=== PATIENT | female | born 1950 | race Caucasian/White ===

== ENCOUNTER 2017-03-09 09:49 | Inpatient (IN) | payer MEDICARE, BC ==
[2017-03-09] MEDS ORDERED: oxyCODONE 5 MG Tab ONE ×2 (14:00→19:30)
[2017-03-09] MEDS ORDERED: Tuberculin, PPD 5 Units/0.1 ML 1 ML MDV IDERM ONE (16:30)
[2017-03-09] MEDS ORDERED: Nitroglycerin 0.4 MG Tab.SL SL PRN (16:57)
[2017-03-09] MEDS ORDERED: Non-Formulary Medication 1 Each (Levothyroxine Sodium [Synthroid] 125 MCG) PO SCH (17:00)
[2017-03-09] MEDS ORDERED: oxyCODONE 5 MG Tab PO PRN (19:40)
[2017-03-09] MEDS: oxyCODONE 5 MG Tab PO PRN (20:30)
[2017-03-09] MEDS: traZODone 50 MG Tab PO PRN (21:15)
[2017-03-09] MEDS: hydrOXYzine HCl 25 MG Tab PO PRN (22:40)
[2017-03-09] MEDS ORDERED: traMADol 50 MG Tab ONE (23:57)
[2017-03-10] MEDS: oxyCODONE 5 MG Tab PO PRN ×3 (04:10→16:21)
[2017-03-10] MEDS ORDERED: Levothyroxine 100 MCG Tab PO SCH (07:00)
[2017-03-10] MEDS ORDERED: Levothyroxine 25 MCG Tab PO SCH (07:00)
[2017-03-10] MEDS ORDERED: Polyethylene Glycol 3350 Powder 510 GM Bot PO PRN (07:39)
[2017-03-10] MEDS ORDERED: Levothyroxine 25 MCG Tab ONE (07:55)
[2017-03-10] MEDS ORDERED: Levothyroxine 100 MCG Tab ONE (07:55)
[2017-03-10] MEDS: Ferrous Gluconate 324 MG Tab PO SCH (07:57)
[2017-03-10] MEDS: Naproxen 250 MG Tab PO SCH ×2 (07:57→20:57)
[2017-03-10] MEDS: Calcium Carbonate/Vitamin D3 1500 MG-400 Units Tab PO SCH (07:57)
[2017-03-10] MEDS: hydrOXYzine HCl 25 MG Tab PO PRN ×4 (07:57→20:57)
[2017-03-10] MEDS: Lisinopril 20 MG Tab PO SCH (07:58)
[2017-03-10] MEDS ORDERED: DIVALPROEX SODIUM 500 MG PO SCH (08:00)
[2017-03-10] MEDS: Aspirin 325 MG Tab.EC PO SCH (08:00)
[2017-03-10] MEDS ORDERED: Naproxen 500 MG Tab PO SCH (08:00)
[2017-03-10] MEDS: Acetaminophen 650 MG Tab.ER PO PRN ×2 (08:00→16:21)
[2017-03-10] MEDS: Bisacodyl 5 MG Tab PO SCH (08:00)
[2017-03-10] MEDS: hydrOXYzine HCl 25 MG Tab PO SCH (10:18)
[2017-03-10] MEDS: traMADol 50 MG Tab PO PRN ×3 (12:32→20:57)
--- NOTE | 2017-03-10 14:53 | HP ---
HISTORY OF PRESENT ILLNESS: This 66-year-old lady is here for rehab purposes. She is being admitted as a swing bed patient. The patient underwent a total right knee replacement on March 06, 2017, and will be here for a while, undergoing both physical and occupational therapy. The patient states that as long as she is on some pain meds, her pain is okay. She has been able to use the bathroom independently with a walker and has been tolerating a regular diet. PAST MEDICAL HISTORY: 1. Breast cancer, status post left mastectomy. 2. Hyperlipidemia. 3. Migraines. 4. Narcolepsy. 5. Sleep apnea. 6. Shortness of breath with exertion. 7. Thyroid disease. 8. History of TIA. CURRENT MEDICATIONS: Please see medication list on [employer]. OBJECTIVE: GENERAL APPEARANCE: Upon entering the room, the patient is lying in bed. She is in no obvious distress. She states her pain is fairly well controlled at this time. VITAL SIGNS: Reveal a blood pressure of 133/66. She is afebrile. HEENT: Oral mucous membranes are moist. Tonsils not enlarged or injected. Pharynx not inflamed. NECK: Supple. LUNGS: Clear. CARDIAC: Heart sounds distinct without murmurs. EXTREMITIES: Examining the patient's right knee area reveals the dressing is intact on the anterior aspect. There is swelling and mild redness on both sides of the dressing. There is a small amount of drainage that has seeped through the dressing to the surface of the dressing that is in place. There is mild tenderness that radiates up the proximal thigh with minimal redness in this area. The patient states that has been this way since she left the surgical center. TREATMENT PLAN: The patient did arrive with orders of minimal assist x1. She will be on a regular diet. She will use a walker for any ambulation, and physical therapy and occupational therapy have already been scheduled to begin next week. Lab work done today. CBC shows a hemoglobin of 11.2, white count is normal. Metabolic panel was unremarkable. CRS/MODL
[2017-03-10] MEDS: traZODone 50 MG Tab PO PRN (20:57)
[2017-03-11] MEDS: Acetaminophen 650 MG Tab.ER PO PRN ×2 (02:20→11:27)
[2017-03-11] MEDS: oxyCODONE 5 MG Tab PO PRN ×5 (02:20→20:12)
[2017-03-11] MEDS: Ferrous Gluconate 324 MG Tab PO SCH (07:43)
[2017-03-11] MEDS: Calcium Carbonate/Vitamin D3 1500 MG-400 Units Tab PO SCH (07:43)
[2017-03-11] MEDS: Naproxen 250 MG Tab PO SCH ×2 (07:43→20:02)
[2017-03-11] MEDS: Aspirin 325 MG Tab.EC PO SCH (07:43)
[2017-03-11] MEDS: Bisacodyl 5 MG Tab PO SCH (07:44)
[2017-03-11] MEDS: Lisinopril 20 MG Tab PO SCH (07:44)
[2017-03-11] MEDS: DIVALPROEX 500 MG PO SCH ×2 (07:44→20:03)
[2017-03-11] MEDS: Levothyroxine 100 MCG Tab PO SCH (08:19)
[2017-03-11] MEDS: Levothyroxine 25 MCG Tab PO SCH (08:19)
[2017-03-11] MEDS: traMADol 50 MG Tab PO PRN (16:08)
[2017-03-11] MEDS: hydrOXYzine HCl 25 MG Tab PO PRN (20:15)
[2017-03-11] MEDS: traZODone 50 MG Tab PO PRN (22:12)
[2017-03-12] MEDS: oxyCODONE 5 MG Tab PO PRN ×4 (00:19→18:02)
[2017-03-12] MEDS: Levothyroxine 25 MCG Tab PO SCH (06:00)
[2017-03-12] MEDS: Levothyroxine 100 MCG Tab PO SCH (06:02)
[2017-03-12] MEDS: hydrOXYzine HCl 25 MG Tab PO PRN ×3 (06:05→18:02)
[2017-03-12] MEDS: Lisinopril 20 MG Tab PO SCH (07:54)
[2017-03-12] MEDS: Naproxen 250 MG Tab PO SCH ×2 (07:54→20:30)
[2017-03-12] MEDS: Ferrous Gluconate 324 MG Tab PO SCH (07:54)
[2017-03-12] MEDS: Bisacodyl 5 MG Tab PO SCH (08:00)
[2017-03-12] MEDS: Aspirin 325 MG Tab.EC PO SCH (08:00)
[2017-03-12] MEDS: Calcium Carbonate/Vitamin D3 1500 MG-400 Units Tab PO SCH (08:00)
[2017-03-12] MEDS: DIVALPROEX 500 MG PO SCH ×2 (08:01→20:30)
[2017-03-12] MEDS: Acetaminophen 650 MG Tab.ER PO PRN ×2 (15:00→21:27)
[2017-03-12] MEDS: traZODone 50 MG Tab PO PRN (21:27)
[2017-03-13] MEDS: oxyCODONE 5 MG Tab PO PRN ×6 (00:34→23:00)
[2017-03-13] MEDS: hydrOXYzine HCl 25 MG Tab PO PRN ×5 (00:37→22:59)
[2017-03-13] MEDS: Acetaminophen 650 MG Tab.ER PO PRN ×2 (03:04→15:09)
[2017-03-13] MEDS: Levothyroxine 25 MCG Tab PO SCH (06:06)
[2017-03-13] MEDS: Levothyroxine 100 MCG Tab PO SCH (06:06)
[2017-03-13] MEDS: Aspirin 325 MG Tab.EC PO SCH (07:36)
[2017-03-13] MEDS: Naproxen 250 MG Tab PO SCH ×2 (07:37→20:33)
[2017-03-13] MEDS: Lisinopril 20 MG Tab PO SCH (07:37)
[2017-03-13] MEDS: Calcium Carbonate/Vitamin D3 1500 MG-400 Units Tab PO SCH (07:37)
[2017-03-13] MEDS: Bisacodyl 5 MG Tab PO SCH (07:37)
[2017-03-13] MEDS: Ferrous Gluconate 324 MG Tab PO SCH (07:37)
[2017-03-13] MEDS: DIVALPROEX 500 MG PO SCH ×2 (07:44→20:33)
[2017-03-13] MEDS ORDERED: hydrOXYzine HCl 25 MG Tab ONE (12:07)
[2017-03-13] MEDS: traZODone 50 MG Tab PO PRN (23:06)
[2017-03-14] MEDS: traMADol 50 MG Tab PO PRN ×3 (03:18→23:05)
[2017-03-14] MEDS: Levothyroxine 25 MCG Tab PO SCH (07:10)
[2017-03-14] MEDS: Levothyroxine 100 MCG Tab PO SCH (07:22)
[2017-03-14] MEDS: oxyCODONE 5 MG Tab PO PRN ×4 (07:26→19:51)
[2017-03-14] MEDS: Ferrous Gluconate 324 MG Tab PO SCH (08:25)
[2017-03-14] MEDS: Lisinopril 20 MG Tab PO SCH (08:26)
[2017-03-14] MEDS: Bisacodyl 5 MG Tab PO SCH (08:26)
[2017-03-14] MEDS: Naproxen 250 MG Tab PO SCH ×2 (08:26→19:51)
[2017-03-14] MEDS: Calcium Carbonate/Vitamin D3 1500 MG-400 Units Tab PO SCH (08:26)
[2017-03-14] MEDS: Aspirin 325 MG Tab.EC PO SCH (08:26)
[2017-03-14] MEDS: DIVALPROEX 500 MG PO SCH (08:29)
[2017-03-14] MEDS: Divalproex Sodium Delayed-Release 500 MG Tab.CR PO SCH ×2 (08:30→19:51)
[2017-03-14] MEDS: Acetaminophen 650 MG Tab.ER PO PRN (15:53)
[2017-03-14] MEDS: hydrOXYzine HCl 25 MG Tab PO PRN ×2 (15:53→23:05)
[2017-03-14] MEDS: traZODone 50 MG Tab PO PRN (23:06)
[2017-03-15] MEDS: oxyCODONE 5 MG Tab PO PRN ×4 (04:20→22:21)
[2017-03-15] MEDS: Acetaminophen 650 MG Tab.ER PO PRN (04:20)
[2017-03-15] MEDS: Aspirin 325 MG Tab.EC PO SCH (08:28)
[2017-03-15] MEDS: Naproxen 250 MG Tab PO SCH ×2 (08:28→20:07)
[2017-03-15] MEDS: Levothyroxine 25 MCG Tab PO SCH (08:28)
[2017-03-15] MEDS: Levothyroxine 100 MCG Tab PO SCH (08:28)
[2017-03-15] MEDS: Bisacodyl 5 MG Tab PO SCH (08:29)
[2017-03-15] MEDS: Ferrous Gluconate 324 MG Tab PO SCH (08:29)
[2017-03-15] MEDS: Calcium Carbonate/Vitamin D3 1500 MG-400 Units Tab PO SCH (08:29)
[2017-03-15] MEDS: Lisinopril 20 MG Tab PO SCH (08:29)
[2017-03-15] MEDS: Divalproex Sodium Delayed-Release 500 MG Tab.CR PO SCH ×2 (08:31→20:07)
[2017-03-15] MEDS: hydrOXYzine HCl 25 MG Tab PO PRN ×2 (12:26→22:21)
[2017-03-15] MEDS: traMADol 50 MG Tab PO PRN (18:35)
[2017-03-16] MEDS: traMADol 50 MG Tab PO PRN ×2 (03:19→18:33)
[2017-03-16] MEDS: Levothyroxine 100 MCG Tab PO SCH (06:11)
[2017-03-16] MEDS: Levothyroxine 25 MCG Tab PO SCH (06:11)
[2017-03-16] MEDS: Naproxen 250 MG Tab PO SCH ×2 (07:44→20:17)
[2017-03-16] MEDS: Ferrous Gluconate 324 MG Tab PO SCH (07:44)
[2017-03-16] MEDS: Divalproex Sodium Delayed-Release 500 MG Tab.CR PO SCH ×2 (07:44→22:35)
[2017-03-16] MEDS: Aspirin 325 MG Tab.EC PO SCH (07:44)
[2017-03-16] MEDS: Calcium Carbonate/Vitamin D3 1500 MG-400 Units Tab PO SCH (07:44)
[2017-03-16] MEDS: Lisinopril 20 MG Tab PO SCH (07:45)
[2017-03-16] MEDS: Bisacodyl 5 MG Tab PO SCH (07:45)
[2017-03-16] MEDS: Acetaminophen 650 MG Tab.ER PO PRN ×2 (08:27→18:32)
[2017-03-16] MEDS: oxyCODONE 5 MG Tab PO PRN ×2 (13:34→22:45)
[2017-03-16] MEDS: hydrOXYzine HCl 25 MG Tab PO PRN ×2 (13:35→22:45)
--- NOTE | 2017-03-16 15:02 | PN ---
DATE OF VISIT: 03/16/2017 HISTORY OF PRESENT ILLNESS: A 66-year-old lady who was admitted to [facility] 1 week ago on March 09 for swing bed purposes involving the rehab. She had recently undergone knee replacement on the right knee and due to not having a good support system at home, it was thought best to be here on swing bed status until she could get rehab to help her get back to 100% with her ADLs. Nursing staff tells me the patient has been doing her ADLs with just supervision, no assistance, she does ambulate with a walker, she has not needed help with anything. The patient's pain has been well controlled with pain medications. Upon entering the room, the patient is awake, she is just finishing her breakfast. She tells me that she is doing well. She had a little dizzy spell after taking a bath a couple of days ago, but that only happened once and she feels fine since. The patient feels she is almost ready to go home. She would like to go home next week. Examining her right knee today reveals the redness is gone, swelling is slowly improving. There is no drainage noted, and the dressing is dry and intact. TREATMENT PLAN: At this point, I feel comfortable with the patient being discharged to go home next week. We are currently talking about Sunday. I will consult with Dr. Sheppard who will hopefully assist with the discharge process since I will not be here next Sunday. NIURKA/NOLBERTO /[id number]
[2017-03-16] MEDS: Calcium Carbonate 500 MG Tab.Chew PO PRN (23:48)
[2017-03-17] MEDS: Levothyroxine 25 MCG Tab PO SCH (06:30)
[2017-03-17] MEDS: Levothyroxine 100 MCG Tab PO SCH (06:31)
[2017-03-17] MEDS: Lisinopril 20 MG Tab PO SCH (07:31)
[2017-03-17] MEDS: Naproxen 250 MG Tab PO SCH ×2 (07:31→19:54)
[2017-03-17] MEDS: Calcium Carbonate/Vitamin D3 1500 MG-400 Units Tab PO SCH (07:31)
[2017-03-17] MEDS: Ferrous Gluconate 324 MG Tab PO SCH (07:31)
[2017-03-17] MEDS: Aspirin 325 MG Tab.EC PO SCH (07:31)
[2017-03-17] MEDS: Bisacodyl 5 MG Tab PO SCH (07:32)
[2017-03-17] MEDS: oxyCODONE 5 MG Tab PO PRN ×5 (07:33→23:50)
[2017-03-17] MEDS: Divalproex Sodium Delayed-Release 500 MG Tab.CR PO SCH ×2 (07:51→19:54)
[2017-03-17] MEDS: hydrOXYzine HCl 25 MG Tab PO PRN ×3 (07:52→23:46)
[2017-03-17] MEDS: Calcium Carbonate 500 MG Tab.Chew PO PRN (20:44)
[2017-03-18] MEDS: Levothyroxine 100 MCG Tab PO SCH (06:06)
[2017-03-18] MEDS: Levothyroxine 25 MCG Tab PO SCH (06:06)
[2017-03-18] MEDS: hydrOXYzine HCl 25 MG Tab PO PRN (06:06)
[2017-03-18] MEDS: oxyCODONE 5 MG Tab PO PRN ×4 (06:07→23:39)
[2017-03-18] MEDS: Lisinopril 20 MG Tab PO SCH (07:41)
[2017-03-18] MEDS: Aspirin 325 MG Tab.EC PO SCH (07:42)
[2017-03-18] MEDS: Divalproex Sodium Delayed-Release 500 MG Tab.CR PO SCH ×2 (07:42→21:40)
[2017-03-18] MEDS: Calcium Carbonate/Vitamin D3 1500 MG-400 Units Tab PO SCH (07:45)
[2017-03-18] MEDS: Ferrous Gluconate 324 MG Tab PO SCH (07:45)
[2017-03-18] MEDS: Naproxen 250 MG Tab PO SCH ×2 (07:46→19:18)
[2017-03-18] MEDS: Bisacodyl 5 MG Tab PO SCH (07:46)
[2017-03-18] MEDS: Calcium Carbonate 500 MG Tab.Chew PO PRN (10:37)
[2017-03-18] MEDS: Acetaminophen 650 MG Tab.ER PO PRN (16:11)
[2017-03-18] MEDS: traMADol 50 MG Tab PO PRN (16:11)
[2017-03-19] MEDS: oxyCODONE 5 MG Tab PO PRN ×2 (03:20→16:17)
[2017-03-19] MEDS: hydrOXYzine HCl 25 MG Tab PO PRN ×2 (03:22→20:52)
[2017-03-19] MEDS: Levothyroxine 100 MCG Tab PO SCH (07:41)
[2017-03-19] MEDS: Levothyroxine 25 MCG Tab PO SCH (07:41)
[2017-03-19] MEDS: traMADol 50 MG Tab PO PRN ×2 (08:03→20:52)
[2017-03-19] MEDS: Aspirin 325 MG Tab.EC PO SCH (08:03)
[2017-03-19] MEDS: Lisinopril 20 MG Tab PO SCH (08:03)
[2017-03-19] MEDS: Naproxen 250 MG Tab PO SCH ×2 (08:04→20:38)
[2017-03-19] MEDS: Bisacodyl 5 MG Tab PO SCH (08:04)
[2017-03-19] MEDS: Ferrous Gluconate 324 MG Tab PO SCH (08:04)
[2017-03-19] MEDS: Calcium Carbonate/Vitamin D3 1500 MG-400 Units Tab PO SCH (08:04)
[2017-03-19] MEDS: Divalproex Sodium Delayed-Release 500 MG Tab.CR PO SCH ×2 (08:06→20:38)
[2017-03-20] MEDS: oxyCODONE 5 MG Tab PO PRN ×3 (00:40→14:04)
[2017-03-20] MEDS: traMADol 50 MG Tab PO PRN ×2 (05:56→12:32)
[2017-03-20] MEDS: Levothyroxine 100 MCG Tab PO SCH (06:03)
[2017-03-20] MEDS: Levothyroxine 25 MCG Tab PO SCH (06:03)
[2017-03-20] MEDS: Naproxen 250 MG Tab PO SCH (07:49)
[2017-03-20] MEDS: Calcium Carbonate/Vitamin D3 1500 MG-400 Units Tab PO SCH (07:49)
[2017-03-20] MEDS: hydrOXYzine HCl 25 MG Tab PO PRN ×2 (07:49→14:05)
[2017-03-20] MEDS: Ferrous Gluconate 324 MG Tab PO SCH (07:49)
[2017-03-20] MEDS: Bisacodyl 5 MG Tab PO SCH (07:50)
[2017-03-20] MEDS: Aspirin 325 MG Tab.EC PO SCH (07:50)
[2017-03-20] MEDS: Lisinopril 20 MG Tab PO SCH (07:50)
[2017-03-20 07:53] VITALS: BP 116/76
[2017-03-20] MEDS: Divalproex Sodium Delayed-Release 500 MG Tab.CR PO SCH (07:55)
--- NOTE | 2017-04-16 11:09 | PCM.DCSUM1 ---
Discharge Summary - Hospital Course Free Text/Narrative:: Pt is a 66 year old female who has had right knee replacement done at [facility] on 03/06/16 and was admitted to [facility] on for post surgical rehabilitation as swing bed. Pt had done well with therapy and has been able to weight bear and ambulate with minimal assistance and able to do ALDS well. As per therapy recommendation pt is at maximum inpatient recovery and hence planned for discharge today. Brief History: Had Right knee replacement on 03/06/17 and was admitted for rehab to [facility] on 03/09/17. Kindly see H&P for detailed report. - Discharge Data Discharge Date: 03/20/17 Discharge Disposition: Home, Self-Care 01 Condition: Good - Patient Summary/Data Consults: Consultations 03/09/17 13:05 OT Evaluation and Treatment [CONS] Routine Please Evaluate and Treat. OT Reason for Consult: Strengthening This query below is only for informational purposes and is not editable. PT Evaluation and Treatment [CONS] Routine Please Evaluate and Treat. PT Reason for Consult: Strengthening This query below is only for informational purposes and is not editable. - Patient Instructions Diet: Heart Healthy Diet Activity: As Tolerated (HOme OT and PT to continue) Showering/Bathing: May Shower - Discharge Plan Home Medications: Home Meds Acetaminophen [Tylenol Arthritis] 650 mg PO ASDIRECTED PRN 03/09/17 [History] Aspirin 325 mg PO DAILY 03/09/17 [History] Calcium Carbonate/Vitamin D3 [Calcium Carb 500 MG] 2,000 mg PO BID 03/09/17 [ History] Divalproex Sodium [Divalproex Sodium ER] 1,000 mg PO BID 03/09/17 [History] EPINEPHrine [Epipen] 0.3 mg IM ONETIME 03/09/17 [History] Ferrous Gluconate 65 mg PO DAILY 03/09/17 [History] Levothyroxine Sodium 112 mcg PO Q48H 03/09/17 [History] Levothyroxine Sodium [Synthroid] 125 mcg PO Q48H 03/09/17 [History] Lisinopril 20 mg PO DAILY 03/09/17 [History] Modafinil 200 mg PO DAILY 03/09/17 [History] Naproxen 250 mg PO BID 03/09/17 [History] Nitroglycerin [Nitrostat] 0.4 mg SL DAILY PRN 03/09/17 [History] Pantoprazole [ProTONIX] 40 mg PO DAILY 03/09/17 [History] Polyethylene Glycol 3350 [MiraLAX] 17 gm PO DAILY PRN 03/09/17 [History] Sennosides/Docusate Sodium [Senna-Docusate Sodium] 1 each PO ASDIRECTED PRN 03/21 [History] hydrOXYzine HCl [hydrOXYzine] 25 mg PO Q6H 03/09/17 [History] oxyCODONE 5 mg PO ASDIRECTED PRN 03/09/17 [History] traMADol [Ultram] 50 mg PO Q6H PRN 03/09/17 [History] traZODone HCl [Trazodone HCl] 50 mg PO QPM PRN 03/09/17 [History] Aspirin [Ecotrin] 325 mg PO DAILY tab.ec 03/20/17 [Rx] Bisacodyl [Dulcolax] 5 mg PO DAILY tablet 03/20/17 [Rx] Calcium Carbonate/Vitamin D3 [Caltrate 600+D 1500 MG-400 Units] 1 tab PO DAILY tablet 03/20/17 [Rx] Ferrous Gluconate 324 mg PO DAILY tablet 03/20/17 [Rx] Levothyroxine 25 mcg PO ACBREAKFAST tablet 03/20/17 [Rx] - Discharge Summary/Plan Comment DC Time >30 min.: Yes - General Info Date of Service: 03/20/17 Functional Status: Reports: pain controlled, tolerating diet, ambulating - Review of Systems General: Denies: Fever, Weakness HEENT: Denies: dysphasia, ear pain, glasses, headaches Pulmonary: Denies: shortness of breath, pleuritic chest pain, hemoptysis, wheezing Cardiovascular: Denies: Chest Pain, Palpitations Gastrointestinal: Denies: Nausea, Vomiting Genitourinary: Denies: frequency, burning Musculoskeletal: Denies: joint pain, joint swelling Neurological: Denies: Dizziness, Headache - Patient Data Vitals - Most Recent: Last Vital Signs Temp 97.6 F 03/20/17 10:00 Pulse 81 03/20/17 10:00 Resp 16 03/20/17 10:00 BP 116/76 03/20/17 10:00 Pulse Ox 99 03/20/17 10:00 Weight - Most Recent: 85.185 kg Med Orders - Current: Current Medications Discontinued Medications Acetaminophen (Tylenol Arthritis Pain) 650 mg PO Q4HR PRN PRN Reason: Pain Last Admin: 03/14/17 15:53 Dose: 650 mg Acetaminophen (Tylenol Arthritis Pain) 650 mg PO Q6H PRN PRN Reason: Pain Last Admin: 03/18/17 16:11 Dose: 650 mg Aspirin (Ecotrin) 325 mg PO DAILY [facility] Last Admin: 03/20/17 07:50 Dose: 325 mg Bisacodyl (Dulcolax) 5 mg PO DAILY [facility] Last Admin: 03/20/17 07:50 Dose: 5 mg Calcium Carbonate (Caltrate 600+D 1500 Mg-400 Units) 1 tab PO DAILY [facility] Last Admin: 03/20/17 07:49 Dose: 1 tab Calcium Carbonate/Glycine (Tums) 1,000 mg PO Q4HR PRN PRN Reason: Indigestion Last Admin: 03/18/17 10:37 Dose: 1,000 mg Divalproex Sodium (Depakote) 1,000 mg PO BID [facility] Last Admin: 03/20/17 07:55 Dose: 1,000 mg Ferrous Gluconate (Ferrous Gluconate) 324 mg PO DAILY [facility] Last Admin: 03/20/17 07:49 Dose: 324 mg Hydroxyzine HCl (Atarax) 25 mg PO Q6H [facility] Last Admin: 03/10/17 10:18 Dose: Not Given Hydroxyzine HCl (Atarax) 25 mg PO Q6H PRN PRN Reason: Pain Last Admin: 03/20/17 14:05 Dose: 25 mg Hydroxyzine HCl (Atarax) Confirm Administered Dose 25 mg .ROUTE .ST[employer]-MED ONE Stop: 03/13/17 12:08 Last Admin: 03/13/17 18:35 Dose: Not Given Levothyroxine Sodium (Synthroid) 100 mcg PO Q48H [facility] Last Admin: 03/10/17 08:49 Dose: Not Given Levothyroxine Sodium (Levothyroxine) 25 mcg PO Q48H [facility] Last Admin: 03/10/17 08:49 Dose: Not Given Levothyroxine Sodium (Levothyroxine) Confirm Administered Dose 25 mcg .ROUTE .STK-MED ONE Stop: 03/10/17 07:56 Last Admin: 03/10/17 08:00 Dose: 25 mcg Levothyroxine Sodium (Synthroid) Confirm Administered Dose 100 mcg .[email or web address] [email or web address] ONE Stop: 03/10/17 07:56 Last Admin: 03/10/17 08:00 Dose: 100 mcg Levothyroxine Sodium (Levothyroxine) 25 mcg PO ACBREAKFAST [facility] Last Admin: 03/20/17 06:03 Dose: 25 mcg Levothyroxine Sodium (Synthroid) 100 mcg PO ACBREAKFAST [facility] Last Admin: 03/20/17 06:03 Dose: 100 mcg Lisinopril (Prinivil) 20 mg PO DAILY [facility] Last Admin: 03/20/17 07:50 Dose: 20 mg Naproxen (Naprosyn) 500 mg PO DAILY [facility] Naproxen (Naprosyn) 250 mg PO Q12HR [facility] Last Admin: 03/20/17 07:49 Dose: 250 mg Nitroglycerin (Nitrostat) 0.4 mg SL DAILY PRN PRN Reason: esophageal spasms Non-Formulary Medication (Levothyroxine Sodium [Synthroid]) 125 mcg PO Q48H [facility] Last Admin: 03/10/17 10:18 Dose: Not Given Divalproex Sodium [ Divalproex Sodium Er ] 500 MgOwn Med 500 mg PO DAILY [facility] Last Admin: 03/10/17 08:53 Dose: 500 mg Oxycodone HCl (Oxycodone) Confirm Administered Dose 5 mg .ROUTE .[employer] ONE Stop: 03/09/17 14:01 Last Admin: 03/09/17 14:00 Dose: 5 mg Oxycodone HCl (Oxycodone) Confirm Administered Dose 5 mg .ROUTE .[facility] ONE Stop: 03/09/17 19:31 Last Admin: 03/09/17 19:35 Dose: 5 mg Oxycodone HCl (Oxycodone) 5 mg PO Q6H PRN PRN Reason: Pain (severe 7-10) Last Admin: 03/09/17 21:14 Dose: 5 mg Oxycodone HCl (Oxycodone) 5 mg PO Q4H PRN PRN Reason: Pain Last Admin: 03/20/17 14:04 Dose: 5 mg Patient's Own Medication 1 Each Divalproex 500 Mg 2 each PO BID [facility] Last Admin: 03/14/17 08:29 Dose: 2 each Polyethylene Glycol (Miralax) 17 gm PO DAILY PRN PRN Reason: Constipation Last Admin: 03/10/17 08:53 Dose: 17 mg Tramadol HCl (Ultram) Confirm Administered Dose 100 mg .ROUTE .STK-MED ONE Stop: 03/09/17 23:58 Last Admin: 03/10/17 04:14 Dose: Not Given Tramadol HCl (Ultram) 50 mg PO Q6H PRN PRN Reason: Pain Last Admin: 03/20/17 12:32 Dose: 100 mg Trazodone HCl (Trazodone) 50 mg PO QPM PRN PRN Reason: Insomnia Last Admin: 03/14/17 23:06 Dose: 50 mg Tuberculin PPD (Aplisol) 5 unit IDERM ONETIME ONE Stop: 03/09/17 16:31 Last Admin: 03/09/17 20:51 Dose: 5 unit - Exam General: Reports: alert, oriented HEENT: Reports: Pupils equal, Pupils reactive, EOMI, Mucous membr. moist/pink Neck: Reports: supple Lungs: Reports: Clear to auscultation, Normal respiratory effort Cardiovascular: Reports: Regular Rate, Regular Rhythm Abdomen: Reports: bowel sounds present, soft, no tenderness, no distension Extremities: Reports: no edema, normal pulses, other (right knee, wound has healed well over right knee. Good ROM able to ambulate well with walker.) *Q Meaningful Use (DIS) - VTE *Q VTE Criteria *Q: - Stroke *Q Stroke Criteria *Q: - AMI *Q AMI Criteria *Q:
== END 2017-03-20 14:15 | disposition home or self-care (01) | DRG 561 ==
LOC: UNDOADMIN 09:51 → LB.MS 09:51
PROVIDERS: ADMIT Physician Assistant; ATTEND Physician Assistant
DX: Z47.1 Aftercare following joint replacement surgery (principal); Z96.651 Presence of right artificial knee joint; Z98.890 Other specified postprocedural states; Z85.3 Personal history of malignant neoplasm of breast; Z90.12 Acquired absence of left breast and nipple; E78.5 Hyperlipidemia, unspecified; G47.30 Sleep apnea, unspecified; Z86.73 Personal history of transient ischemic attack (TIA), and cerebral infarction without residual deficits; G47.419 Narcolepsy without cataplexy; Z79.82 Long term (current) use of aspirin; E07.9 Disorder of thyroid, unspecified; Z88.1 Allergy status to other antibiotic agents; Z91.030 Bee allergy status; Z91.040 Latex allergy status; Z88.0 Allergy status to penicillin; Z88.2 Allergy status to sulfonamides; Z88.8 Allergy status to other drugs, medicaments and biological substances
CPT/HCPCS: 86580; 97110-GP; 97116-GP; 97161-GP; 97165-GO; 97530-GO; 97535-GO; A9270-GY